=== PATIENT | female | born 1985 | race Two or more races ===

== ENCOUNTER 2018-09-15 21:22 | Emergency (ER) | payer SELFPAY ==
[~2018-09-15] VITALS: Ht 157.5 cm; Wt 81.6 kg
[2018-09-15 23:05] VITALS: BP 114/78
== END 2018-09-16 00:37 ==
LOC: ER 21:28
DX: O26.891 Other specified pregnancy related conditions, first trimester (principal); Z02.89 Encounter for other administrative examinations; Z3A.09 9 weeks gestation of pregnancy
CPT/HCPCS: 36415; 76801; 84702